=== PATIENT | male | born 1965 | race Caucasian/White ===

== ENCOUNTER → 2018-01-08 | Day surgery (SDC) | payer BC ==
[~2018-01-08] MED LIST: ALPRAZOLAM2 MG PO; AMLODIPINE BESY10 MG PO; ATORVASTATIN CA20 MG PO; BENICAR; DICLOFENAC SODI75 MG PO; FENTANYL CITRATE/PF 100MCG/2 ML INJ ONE; HYOSCYAMINE SULFATE 0.5 MG/ML AMP ONE; KETAMINE HCL INJ 50 MG/ML 10 ML VIAL ONE; LIPITOR; LOSARTAN POTAS100 MG PO; MIDAZOLAM HCL 5MG/ML 2ML VIAL ONE; PANTOPRAZOLE; PANTOPRAZOLE SO40 MG PO; PROPOFOL IV EMULSION 10 MG/ML 50 ML VIAL ONE; QUESTRAN PACKET4 GM PO; XANAX
--- NOTE | 2018-01-08 10:26 | Operative Report ---
DATE OF PROCEDURE: January 08, 2018 REFERRING PHYSICIAN: Dr. Cecil Mosley PROCEDURES PERFORMED 1. Esophagogastroduodenoscopy with biopsies. 2. Colonoscopy with polypectomy and biopsies. INDICATIONS FOR EGD: Acid reflux. INDICATIONS FOR COLONOSCOPY: Colorectal cancer screening, bloody diarrhea. MEDICATION: Patient was done under MAC. Please see anesthesiologist's note. PROCEDURE: With the patient in the left lateral decubitus position, the flexible fiberoptic Olympus gastroscope was introduced into the esophagus under direct visualization without any difficulty. There was some patchy erythema noted in the distal esophagus. A minute tongue of velvety red mucosa was noted to extend proximally from the GE junction, and that was biopsied to rule out Abbasi's. The scope was then advanced with ease into the stomach. The mucosa overlying the antrum and the body revealed some diffuse erythema and mild to moderate edema, and biopsies were obtained and sent to stain for H. pylori. Some minute hyperplastic-appearing polyps were noted in the body of the stomach, and some were partially excised with cold biopsy forceps. Pylorus appeared to be of normal contour and shape. It was intubated with ease, and the scope was advanced all the way to the 2nd portion of the duodenum. Biopsies were obtained from the proximal 2nd portion to rule out sprue, considering the patient's history of diarrhea. Mucosa overlying the duodenal bulb appeared to be within normal limits. The scope was then withdrawn back into the stomach and retroflexed. Mucosa overlying the fundus and cardia appeared to be within normal limits. The scope was then straightened out. The stomach was decompressed. The scope was subsequently withdrawn. Patient tolerated the procedure well. IMPRESSION 1. Distal esophagitis, mild. 2. Rule out Abbasi's esophagus. 3. Gastritis, biopsied. Biopsies sent to stain for H. pylori. 4. Gastric polyps, body, partially excised with the cold biopsy forceps. 5. Rule out sprue. PLAN: Follow up histology. Increase Protonix to 40 mg 1 p.o. a.c. b.i.d. The patient was then turned around. After adequate lubrication of the anal canal, a flexible fiberoptic Olympus colonoscope was inserted into the rectum with ease and advanced all the way to the cecum. Mucosa overlying the cecum appeared to be within normal limits. The ileocecal valve was intubated, and the scope was advanced into the terminal ileum. Biopsies were obtained. The scope was then withdrawn back into the colon. It was then withdrawn slowly. One polyp was snared from the proximal ascending colon. The rest of the ascending and transverse appeared to be within normal limits. Some mild inflammatory changes were noted in the left colon. Multiple random biopsies were obtained. Diverticular disease was noted in the sigmoid colon. Two polyps were hot biopsied from the rectum. The scope was then retroflexed into the distal rectum. Moderate-size internal hemorrhoids were noted, none of which was actively bleeding. The scope was then straightened out. It was subsequently withdrawn after securing an adequate stool specimen that was sent for the appropriate stool studies. A small anal fissure was noted on the way out. Patient tolerated the procedure well. IMPRESSION 1. Ascending colon polyp, snared. 2. Colitis, left-sided, mild, patchy. 3. Diverticulosis. 4. Rectal polyps times 2, hot biopsied. 5. Proctitis, mild. 6. Internal hemorrhoids, none actively bleeding. 7. Anal fissure. PLAN: Follow up histology. Follow up stool studies. Initiate Bentyl 10 mg 1 p.o. t.i.d., VSL #3 one p.o. b.i.d., hydrocortisone suppositories 25 mg b.i.d. times 10 days, then p.r.n. The patient will need a followup colonoscopy in 3 years. Job#: [id number] cc:CECIL MOSLEY MD
[2018-01-08 13:43] LABS: C DIFFICILE TOXIN A&B AMP PROB NEGATIVE (NEGATIVE)
[2018-01-09 05:17] LABS: WBC,FECAL (FECAL LACTOFERRIN) NEGATIVE (NEGATIVE)
== END | disposition home or self-care (01) ==
LOC: OR 05:52
PROVIDERS: ATTEND Internal Medicine Gastroenterology
DX: K29.50 Unspecified chronic gastritis without bleeding (principal); K63.5 Polyp of colon; K62.1 Rectal polyp; K31.7 Polyp of stomach and duodenum; K51.50 Left sided colitis without complications; K21.9 Gastro-esophageal reflux disease without esophagitis; K20.9 Esophagitis, unspecified; K64.8 Other hemorrhoids; K60.2 Anal fissure, unspecified; K62.89 Other specified diseases of anus and rectum; K57.30 Diverticulosis of large intestine without perforation or abscess without bleeding; I10 Essential (primary) hypertension; E78.5 Hyperlipidemia, unspecified; F41.9 Anxiety disorder, unspecified; F17.210 Nicotine dependence, cigarettes, uncomplicated; Z01.810 Encounter for preprocedural cardiovascular examination
CPT/HCPCS: 43239; 45384; 45385; 83630; 83993; 87045; 87177; 87328; 87493; 93005; J1980; J2250; 45378; 45380

== ENCOUNTER → 2021-01-19 | Outpatient (CLI) | payer BC ==
[~2021-01-19] MED LIST changes: +DIATRIZOATE MEGL/DIATRIZOA SOD 30 ML BTL PO ONE; -FENTANYL CITRATE/PF 100MCG/2 ML INJ ONE; -HYOSCYAMINE SULFATE 0.5 MG/ML AMP ONE; +IOPAMIDOL 370 MG/ML 200 ML INFUS..BTL INJ ONE; -KETAMINE HCL INJ 50 MG/ML 10 ML VIAL ONE; -MIDAZOLAM HCL 5MG/ML 2ML VIAL ONE; -PROPOFOL IV EMULSION 10 MG/ML 50 ML VIAL ONE; +SODIUM CHLORIDE 0.9% 50ML 50 ML ONE
== END ==
LOC: CT 16:33
PROVIDERS: ATTEND Internal Medicine Gastroenterology
DX: R10.84 Generalized abdominal pain (principal); R11.0 Nausea; R12 Heartburn
CPT/HCPCS: 74177; Q9967

== ENCOUNTER → 2021-10-20 | Day surgery (SDC) | payer BC ==
[~2021-10-20] MED LIST changes: -DIATRIZOATE MEGL/DIATRIZOA SOD 30 ML BTL PO ONE; +FENTANYL CITRATE/PF 100MCG/2 ML INJ ONE; +GLUCAGON FOR INJ 1 MG VIAL ONE; +HYOSCYAMINE SULFATE 0.5 MG/ML INJ ONE; -IOPAMIDOL 370 MG/ML 200 ML INFUS..BTL INJ ONE; +LIDOCAINE HCL 2% LOCAL INJ 5 ML SDV VIAL INJ ONE; +MIDAZOLAM HCL 2 MG/2 ML VIAL ONE; +NEURONTIN300 MG PO; +PROPOFOL IV EMULSION 10 MG/ML 20 ML VIAL ONE; -SODIUM CHLORIDE 0.9% 50ML 50 ML ONE
[2021-10-20 17:05] VITALS: BP 101/64
== END | disposition home or self-care (01) ==
LOC: OR 11:35
PROVIDERS: ATTEND Internal Medicine Gastroenterology
DX: K29.50 Unspecified chronic gastritis without bleeding (principal); D12.0 Benign neoplasm of cecum; D12.3 Benign neoplasm of transverse colon; K31.7 Polyp of stomach and duodenum; K20.90 Esophagitis, unspecified without bleeding; K62.89 Other specified diseases of anus and rectum; K57.30 Diverticulosis of large intestine without perforation or abscess without bleeding; K64.8 Other hemorrhoids; R19.8 Other specified symptoms and signs involving the digestive system and abdomen; Z71.3 Dietary counseling and surveillance; I10 Essential (primary) hypertension; E78.00 Pure hypercholesterolemia, unspecified; F17.210 Nicotine dependence, cigarettes, uncomplicated; Z01.810 Encounter for preprocedural cardiovascular examination; Z01.812 Encounter for preprocedural laboratory examination; Z20.822 Contact with and (suspected) exposure to COVID-19; Z79.899 Other long term (current) drug therapy; Z68.28 Body mass index [BMI] 28.0-28.9, adult
CPT/HCPCS: 43239; 45380; 45385; 93005; C9113; J1610; J1980; J2001; J2250; J2704; J3010; U0002; 45378